=== PATIENT | male | born 1985 | race African-American/Black ===

== ENCOUNTER 2016-10-04 07:43 | Inpatient (IN) ==
--- NOTE | 2016-10-04 08:05 | Diag Imaging Result Doc PS360 ---
CT HEAD W/O CONTRAST - 10/04/2016 INDICATION: brain attack TECHNIQUE: A CT dose reduction protocol was used. COMPARISON: 09/19/2014 FINDINGS: The ventricles and sulci are normal in size and contour. No intracranial mass or hemorrhage. The skull is intact. The sinuses mastoids and middle ears are clear. IMPRESSION: Negative exam. Electronically signed by Huber Lemus 10/04/2016 8:03 AM
[2016-10-04 08:19] LABS: MANUAL DIFF NEEDED? NO
[2016-10-04 08:24] LABS: BASO% 0.5 % (0.0-0.8); EOS# 0.26 X1000 (0.0-0.7); EOS% 4.3 % (0.0-10.0); HEMATOCRIT 45.8 % (42.0-52.0); HEMOGLOBIN 15.8 g/dL (14.0-18.0); IMM GRAN# 0.04 X1000 (0.0-0.04); IMM GRAN% 0.7 % (0.0-0.5); LYMPH# 2.17 X1000 (1.2-3.4); LYMPH% 36.2 % (20.5-51.1); MCH 30.9 PG (27-31); MCHC 34.5 g/dL (33-37); MCV 89.5 FL (81-99); MONO# 0.83 X1000 (0.11-0.59); MONO% 13.8 % (1.7-9.3); MPV 9.8 FL (7.4-10.4); NEUT% 44.5 % (42.2-75.2); PLT 209 X1000 (130-400); RBC 5.12 XMIL (4.7-6.1)
[2016-10-04 08:32] LABS: INR 1.02; PROTIME 10.7 Seconds (9.2-11.7); PTT 25.9 Seconds (22.0-36.0)
--- NOTE | 2016-10-04 08:36 | PROVIDER DOCUMENTATION ---
HPI-Neurological Disorder - General Chief Complaint: Stroke-Like Symptoms Stated Complaint: BRAINATTACK/ST ELEVATION Time Seen by Provider: 10/04/16 07:52 Source: patient, EMS Allergies/Adverse Reactions: Patient Allergies Allergy/AdvReac Type Severity Reaction Status Date / Time Corticosteroids Allergy Unknown Unknown Verified 09/25/16 17:46 (Glucocorticoids) latex Allergy RASH Verified 09/25/16 17:46 hydrocodone bitartrate * AdvReac Intermediate Unknown Verified 09/25/16 17:46 [From Lortab] Home Medications: Home Medication List Medication Instructions Recorded Confirmed Last Taken Type ATORVAstatin [Lipitor] 20 mg PO DAILY #90 tablet 10/05/16 Unknown Rx Aspirin 81 mg PO DAILY chewtab 10/05/16 Unknown Rx Hydrochlorothiazide 25 mg PO DAILY #90 tablet 10/05/16 Unknown Rx Trazodone [Desyrel] 50 mg PO HS #30 tablet 10/05/16 Unknown Rx - History of Present Illness-Neuro Nature of Presenting Problem: Patient presents with right sided weakness present upon awaking this morning. Has hx of previous cva. Cesario substance abuse. Severity: reports: moderate Onset/Duration: reports: unsure Timing: reports: still present, constant Context: reports: impaired speech, paresthesia, facial droop Any recent trauma/injury?: reports: none Character of Deficits: reports: new weakness, impaired speech, impaired swallowing, decreased ability to stand, decreased ability to walk New weakness or altered sensation location:: reports: RUE, RLE, right facial Cognitive Baseline: alert, oriented x3 Associated Symptoms: reports: decreased ability to walk or stand, paresthesia, slurred speech, trouble walking Similar Symptoms Previously?: No (Previous CVA) Recently seen or treated by another doctor?: No Review of Systems - Adult - REVIEW OF SYSTEMS - ADULT ROS:: unobtainable per condition Constitutional: reports: no symptoms reported Eyes: reports: no symptoms reported Ears, Nose, Mouth & Throat: reports: no symptoms reported Cardiovascular: reports: no symptoms reported Respiratory: reports: no symptoms reported Gastrointestinal: reports: no symptoms reported Genitourinary: reports: no symptoms reported Musculoskeletal: reports: no symptoms reported Integumentary: reports: no symptoms reported Neurological: reports: paresthesia, slurred speech Psychiatric: reports: no symptoms reported Endocrine: reports: no symptoms reported Hematologic/Lymphatic: reports: no symptoms reported Allergic/Immunologic: reports: no symptoms reported Past History - Adult - PAST MEDICAL HISTORY-ADULT Review of Records: reports: Old Records Reviewed, Nursing Assessment Review Major Childhood Illnesses: reports: denies history Cardiovascular: reports: HTN, hyperlipidemia Respiratory: reports: denies history Gastrointestinal: reports: denies history Obstetrical/Gynecological: reports: denies history Genitourinary: reports: denies history Musculoskeletal: reports: other (peripheral neuropathy) Neurological: reports: CVA Psychiatric: reports: anxiety, depression Endocrine/Immune: reports: denies history Other Conditions: reports: denies history - PRIOR SURGERIES/PROCEDURES Surgical/Procedure History: reports: none - IMMUNIZATION STATUS Childhood Immunizations: See Nurse Assessment Flu Vaccine: See Nurse Assessment - FAMILY HISTORY Family History: diabetes, HTN - SOCIAL HISTORY Smoking: denies Substance Use: none/never Alcohol Use Frequency: never Physical Exam- Neurological - Physical Exam-Neuro Initial Vital Signs Reviewed: Yes General Appearance: mild distress Eye Exam: bilateral eye: normal inspection, PERRL, EOMI HENMT: normocephalic/atraumatic Head Injury: no evidence of injury Neck: non-tender, full range of motion Respiratory: chest non-tender Cardiovascular: normal peripheral pulses Abdominal Exam: normal bowel sounds Lymphatic: no adenopathy Peripheral Pulses: radial (R): 2+, radial (L): 2+, carotid (R): 2+, carotid (L) : 2+, femoral (R): 2+, femoral (L): 2+, dorsalis-pedis (R): 2+, dorsalis-pedis ( L): 2+ 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 Exam: normal hearing Coordination/Gait: ABN nose to finger (R) Motor/Sensory: no sensory deficit, weak motor strength RUE, weak motor strength RLE Neurologic: facial droop Integumentary: normal color Psych/Mental Status: normal mood/affect - Glascow Coma Scale Best Eye Response: (4) open spontaneously Best Verbal Response: (5) oriented Best Motor Response: (6) obeys commands Total Glascow Score: 15 Progress - PLAN OF CARE/RESULTS Progress/Plan/Lab Results: Orders Category Date Time Status Admit - [facility] Routine [id number] 10/04/16 11:03 Ordered Cardiac Monitoring DIRECTED Care 10/04/16 07:53 Completed Finger Stick Blood Sugar (ED) DIRECTED Care 10/04/16 07:53 Completed IV Insertion ORDERED Care 10/04/16 11:03 Completed Intake and Output-Strict ORDERED Care 10/04/16 11:03 Active Misc. NRSG Communication Order DIRECTED Care 10/04/16 07:53 Completed Neurological Check Q 4-HR ASSESS Care 10/04/16 11:03 Active Nursing- MD Consult Request ROUTINE Care 10/04/16 11:03 Completed Oxygen Therapy- ED Nursing DIRECTED Care 10/04/16 07:53 Completed Saline Loc NOW Care 10/04/16 07:53 Completed Vital Signs Order Q 4-HR ASSESS Care 10/04/16 11:03 Completed Z-Document. for Tele Applied ORDERED Care 10/04/16 11:03 Completed CHEST-PORTABLE [RAD] Stat Exams 10/04/16 07:[address] HEAD W/O CONTRAST [CT] Stat Exams 10/04/16 07:45 Completed BASIC METABOLIC PANEL [CHEM] Routine Lab 10/05/16 04:30 Completed CBC WITH ELECTRONIC DIFF [HEME] Stat Lab 10/04/16 08:03 Completed CBC WITH NO DIFF [HEME] Routine Lab 10/05/16 04:30 Completed CK PROFILE [SP CHEM] Q8H Lab 10/04/16 11:30 Completed CK PROFILE [SP CHEM] Q8H Lab 10/04/16 18:50 Completed CK PROFILE [SP CHEM] Q8H Lab 10/05/16 04:30 Completed COMPREHENSIVE METABOLIC PANEL [CHEM] Stat Lab 10/04/16 08:03 Completed D-DIMER [CHEM] Stat Lab 10/04/16 09:03 Completed FOLATE Routine Lab 10/05/16 04:30 Completed FREE T4 Routine Lab 10/05/16 04:30 Completed LIPID PROFILE W/CALC LDL [LIPIDS] Routine Lab 10/05/16 04:30 Completed MAGNESIUM [CHEM] Routine Lab 10/05/16 04:30 Completed PROTIME WITH INR [COAG] Stat Lab 10/04/16 08:03 Completed PTT [COAG] Stat Lab 10/04/16 08:03 Completed TROPONIN T Q8H Lab 10/04/16 11:30 Completed TROPONIN T Q8H Lab 10/04/16 18:50 Completed TROPONIN T Q8H Lab 10/05/16 04:30 Completed TROPONIN T Stat Lab 10/04/16 08:03 Completed TSH Routine Lab 10/05/16 04:30 Completed URINALYSIS W/POSS RFLX CULT-1 [URINALYSIS] Stat Lab 10/04/16 08:52 Completed URINE DRUG SCREEN MEDTOX Routine Lab 10/04/16 08:52 Completed VITAMIN B12 Routine Lab 10/05/16 04:30 Completed Aspirin Med 10/04/16 10:39 Discontinued 325 mg PO STAT STA Trazodone [Desyrel] Med 10/04/16 21:00 Discontinued 50 mg PO HS Telemetry [OM.EQ] Routine Oth 10/04/16 11:03 Active Carotid Ultrasound Routine Ther 10/04/16 11:03 Completed EKG [EKG] Stat Ther 10/04/16 07:53 Draft Echo Spec/Color Dop W/O Contra Routine Ther 10/04/16 11:03 Completed Venous U/S Right Leg Routine Ther 10/04/16 10:37 Completed Transfer/Admit Order [TRANSFER] Routine Transfer 10/04/16 09:52 Completed Result Diagrams: 10/05/16 04:30 10/05/16 04:30 - CHANGE OF SHIFT REPORT (ED Provider) Items Pending: XRAY Results (ct scan and chest xray WNL.), CT/MRI Results (CT WNL) Departure - Departure Date of Disposition Decision: 10/04/16 Time of Disposition Decision: 10:00 DIAGNOSIS: TIA (transient ischemic attack) Disposition: ADMITTED INPATIENT 09 Certified Medical Emergency: Emergent Condition: Stable - Critical Care Note This patient required my direct & personal management of CC.: No Attestation - Physician/ DEVIN Attestation Patient care was provided by Advanced Practice Provider:: No The physician spent face to face time with patient:: Yes Advanced Practice Provider documentation review:: Supervising physician onsite and consulted in the evaluation and care of this patient. The physician did have a face to face encounter with the patient. - NIH Stroke Scale NIH Type: Initial Evaluation Level of Consciousness: 0-Alert LOC Questions (ask month and age): 0-Answers Both Correctly LOC Commands (ask to open & close eyes;make a fist, let go): 0-Obeys Both Correctly Best Gaze (horizontal eye movement): 0-Normal Visual (use finger movement, counting or visual threat): 0-No Visual Loss Facial Palsy (show teeth or raise eyebrows & close eyes tght: 0-Symmetrical Movement
[2016-10-04 08:46] LABS: AGAP 14; ALBUMIN 4.6 g/dL (3.5-5.0); ALKALINE PHOSPHATASE 71 U/L (32-122); BUN 13 mg/dL (8-22); CALCIUM 9.1 mg/dL (8.8-10.2); CHLORIDE 99 mmol/L (98-107); COSMO 277; GOT 18 U/L (10-34); GPT 38 U/L (10-44); POTASSIUM 4.3 mmol/L (3.5-5.1); SODIUM 138 mmol/L (136-145); TCO2 25 mmol/L (25-35); TOTAL BILIRUBIN 0.41 mg/dL (0.20-1.00); TOTAL PROTEIN 7.7 g/dL (6.3-8.3)
--- NOTE | 2016-10-04 08:46 | Diag Imaging Result Doc PS360 ---
CHEST-PORTABLE - 10/04/2016 INDICATION: stroke like symptoms TECHNIQUE: COMPARISON: 09/19/2014 FINDINGS: The lungs are normally expanded and clear. Heart size and mediastinal contours are normal. No pneumothorax or pleural effusion. IMPRESSION: Negative exam. Electronically signed by Huber Lemus 10/04/2016 8:44 AM
[2016-10-04 09:06] LABS: URINE CULTURE NEEDED? NO; URINE MICRO REVIEW NEEDED? NO; URINE SOURCE CLEAN CATCH
[2016-10-04 09:09] LABS: BILIRUBIN URINE NEGATIVE (NEGATIVE); BLOOD URINE NEGATIVE (NEGATIVE); COLOR YELLOW; GLUCOSE URINE NEGATIVE (NEGATIVE); LEUKOCYTES URINE NEGATIVE (NEGATIVE); NITRITE URINE NEGATIVE (NEGATIVE); PROTEIN URINE NEGATIVE (NEGATIVE); SP GRAVITY URINE 1.012; TURBIDITY URINE CLEAR (CLEAR); UROBILINOGEN URINE NORMAL (NORMAL)
[2016-10-04 09:10] LABS: UR EPITHELIAL CELLS <10 /HPF (<10); URINE BACTERIA NEGATIVE /HPF; URINE RBC <10 /HPF (<10); URINE WBC <10 /HPF (<10)
[2016-10-04 09:21] LABS: UR AMPHETAMINES MT NONE DETECTED (NONE DETECT); UR BARBITUATES MT NONE DETECTED (NONE DETECT); UR BENZODIAZ MT NONE DETECTED (NONE DETECT); UR CANNABIS MEDTOX NONE DETECTED (NONE DETECT); UR COCAINE MT NONE DETECTED (NONE DETECT); UR METHADONE MEDTOX NONE DETECTED (NONE DETECT); UR OPIATES MT NONE DETECTED (NONE DETECT); UR OXYCODONE MEDTOX NONE DETECTED (NONE DETECT); UR PCP MEDTOX NONE DETECTED (NONE DETECT)
[2016-10-04] MEDS ORDERED: ASPIRIN PO STA (10:39)
[2016-10-04] MEDS: NS 1,000 ML IV SCH ×2 (11:42→20:04)
--- NOTE | 2016-10-04 14:19 | HISTORY AND PHYSICAL ---
PRIMARY CARE PROVIDER: JAZZMINE Polo. CHIEF COMPLAINT: Right-sided weakness. HISTORY OF PRESENT ILLNESS: Mr. Kamara is a 31-year-old gentleman with a history of peripheral neuropathy, hypertension, and questionable seizure disorder, who presents to the ER with acute onset of right-sided weakness that began this morning. He reports that he woke up this morning with some right arm and leg weakness. He went to the bathroom and noticed that the right side of his face was drooping and he came to the ER for evaluation for concern of stroke. Yesterday he was in his normal state of health. This morning, he states that his right arm and leg are somewhat numb and that he is having some numbness and tingling in the right side of face with right-sided drooping. He also reports brief midsternal chest pain that was sharp in nature earlier this morning. This was associated with some mild shortness of breath and mild nausea. He has not had any recent fevers or chills. No seizure-like activity. No loss of vision or syncope. He does report some blurry vision. He also reports some pain and swelling in the right lower extremity. Mr. Kamara was here in February of last year for essentially the same thing, but at that time he had seizure-like activity as well. He had a brain MRI which was negative and was seen by neurology, who did not have any urgent recommendations. He reports that he does not take any seizure medicine because he was told not to last year. When he got to the ER today he had labs and diagnostics done. His labs are unremarkable and his imaging studies do not show anything acute. On physical exam, he does have some right-sided weakness of both upper and lower extremities but he is oriented. He is now going to be admitted for further treatment and evaluation. PAST MEDICAL HISTORY: 1. Hypertension. 2. Hyperlipidemia. 3. Insomnia. 4. Reported history of a small stroke. 5. Questionable seizures. PAST SURGICAL HISTORY: None. SOCIAL HISTORY: Patient denies tobacco, alcohol, or drug use. He has multiple family members at the bedside. FAMILY HISTORY: Significant for heart disease and CVA, as well as diabetes. ALLERGIES: Glucocorticoids, latex, and Lortab. HOME MEDICATIONS: Lisinopril 20 mg daily and trazodone 50 mg at bedtime. REVIEW OF SYSTEMS: Fourteen-point review of systems obtained and found to be negative with the exception of the HPI. PHYSICAL EXAMINATION: VITAL SIGNS: Blood pressure is 129/79, heart rate 79, respiratory rate 18, O2 saturation 99% on room air, temperature is 98.7 degrees. GENERAL: This is an overweight, male, lying in hospital bed. No acute distress. NEUROLOGIC: The patient is awake and alert. He follows commands with right upper and lower extremity weakness. He does perhaps have some mild right facial droop. Speech is clear. HEENT: Head is atraumatic, normocephalic. Pupils are equal, round, reactive to light. Oral mucosa is moist. Trachea is midline. There is no JVD. CHEST: Clear to auscultation bilaterally. CV: Regular rate and rhythm. S1, S2 is noted. GI: Soft, nondistended. He reports some mild epigastric tenderness to palpation. EXTREMITIES: No edema, clubbing, or cyanosis. Pulses palpable bilaterally. DIAGNOSTIC DATA: Chemistry, hematology, urine, and toxicology are all unremarkable. His head CT does not show anything acute. Chest x-ray is negative. Currently awaiting an EKG. ASSESSMENT AND PLAN: 1. Right-sided weakness: It is unlikely the patient is having a CVA; however, we are going to admit him to the floor with telemetry. He will get a full workup including an MRI of the head, carotid ultrasound, and echocardiogram. We will add aspirin. Check lipid panels. We will continue neuro checks and allow for permissive hypertension. 2. Chest pain: Atypical, bordering on noncardiac. Echo has been ordered. We have ordered stat aspirin. We will keep him on telemetry and monitor. 3. Hypertension: Allowing for permissive hypertension at this time. We will treat according to stroke guidelines. 4. Peripheral neuropathy: Unclear of the etiology. We do not have EMG studies. The patient is not diabetic. We will try and get neurology to see him. 5. Deep vein thrombosis prophylaxis with Lovenox. Further recommendations to follow. I personally performed a face to face evaluation on this patient, also I review laboratory work and images, based on my physical exam I think this patient has migraines, has an strong family history of cardiac disease at young age, I agree with the assestment and treatment, Giorgio Villaseñor MD. Dictated by JAZZMINE Washington for Giorgio Hebert MD cc: JAZZMINE Washington MD MTDD
--- NOTE | 2016-10-04 14:19 | ECHO REPORT ---
ORDER DATE: 10/04/2016 ECHOCARDIOGRAPHIC MEASUREMENTS: 1. Interventricular septum 0.8, left ventricular posterior wall 1.0, diastolic diameter 4.8, left atrium 3.3, aorta 3.1. Normal left ventricular cavity size. Estimated ejection fraction of 60-65%. 2. Mitral valve was normal. Tricuspid valve was normal. 3. Aortic valve leaflets are trileaflet. Pulmonic valve was normal. 4. Peak velocity across the aortic valve less than 2 m/sec. There is no aortic stenosis or regurgitation. There is trace mitral regurgitation. Mild tricuspid regurgitation. Peak velocity across the tricuspid valve was 2 m/sec. 5. There is no pericardial effusion or obvious intracardiac mass or thrombus seen. cc: MD Contreras Rojas CRNP
[2016-10-04] MEDS ORDERED: NORCO-5 PO ONE (20:56)
[2016-10-04] MEDS ORDERED: DESYREL PO SCH (21:00)
[2016-10-05 04:56] LABS: HEMATOCRIT 39.7 % (42.0-52.0); HEMOGLOBIN 13.8 g/dL (14.0-18.0); MCH 31.8 PG (27-31); MCHC 34.8 g/dL (33-37); MCV 91.5 FL (81-99); MPV 9.5 FL (7.4-10.4); RBC 4.34 XMIL (4.7-6.1)
[2016-10-05 05:31] LABS: AGAP 14; BUN 11 mg/dL (8-22); CALCIUM 8.7 mg/dL (8.8-10.2); CHLORIDE 102 mmol/L (98-107); COSMO 278; HDL 43 mg/dL (35-55); LDL 164 mg/dL; MAGNESIUM 1.9 mg/dL (1.5-2.7); POTASSIUM 4.1 mmol/L (3.5-5.1); SODIUM 139 mmol/L (136-145); TCO2 23 mmol/L (25-35); TRIGLYCERIDES 198 mg/dL (39-160); VLDL 40 mg/dL
[2016-10-05 05:47] LABS: FREE T4 1.13 ng/dL (0.93-1.70)
--- NOTE | 2016-10-05 05:49 | EKG Report ---
Test Performed on : 10/04/2016 07:35:01 AM Test Reason : Stroke like symptoms Blood Pressure : / mmHG Vent. Rate : 094 BPM Atrial Rate : 094 BPM P-R Int : 144 ms QRS Dur : 098 ms QT Int : 384 ms P-R-T Axes : 048 038 000 degrees QTc Int : 480 ms Normal sinus rhythm. Possible Left atrial enlargement Prolonged QT Abnormal ECG No previous ECGs available Unconfirmed Result
[2016-10-05] MEDS ORDERED: PRILOSEC PO SCH (07:00)
[2016-10-05] MEDS: NS 1,000 ML IV SCH ×3 (07:44→13:03)
[2016-10-05] MEDS ORDERED: LOVENOX SUBQ SCH (09:00)
[2016-10-05] MEDS ORDERED: LIPITOR PO SCH (09:00)
[2016-10-05] MEDS ORDERED: ASPIRIN PO SCH ×2 (09:00→14:03)
[2016-10-05 11:22] VITALS: BP 140/96
--- NOTE | 2016-10-05 15:13 | Diag Imaging Result Doc PS360 ---
EXAM: MRI BRAIN W W/O CONTRAST HISTORY: R/O stroke TECHNIQUE: MRI of the brain with and without gadolinium; T1 sagittal and axial, T2 and flair axial, DWI axial and post gadolinium-enhanced FSPGR T1 axial with coronal reformation, gradient echo coronal. COMMENT: There is no evidence of mass effect, bleed, abnormal extra-axial fluid collection, or hydrocephalus. There is no evidence of restricted diffusion. There is no evidence of abnormal gadolinium enhancement. IMPRESSION: Normal MRI of the brain. Electronically signed by Rafa Sen 10/05/2016 3:11 PM
--- NOTE | 2016-10-05 16:59 | CONSULTATION ---
DATE OF CONSULTATION: 10/05/2016 REASON FOR CONSULTATION: The patient is seen in consultation at the request of Dr. Casanova for evaluation of possible stroke. HISTORY OF PRESENT ILLNESS: A 31-year-old, right-handed, male , with history of hypertension and depression, who was admitted for possible stroke symptoms. He reports he woke up yesterday morning, and walked to the bathroom and noticed that his right lower face was drooping. He smiled and felt like it was still droopy. He then noticed that his right arm , which was being held tonically at his side with a clinched fist, was difficult to move. It was stiff. He tried to use his left hand to open up his right fist, but was unable to do this because the hand was stiff. He also felt like there was some numbness about the middle of the right arm and also the full right leg. When being tested in the emergency room for strength, he felt like it was more difficult to lift his right leg than his left leg. All the symptoms resolved in approximately 30 minutes. He did not have any lightheadedness or loss of consciousness. No headache. No further symptoms, neurologically. There was report of some brief sharp chest pain. He has never had this before. Head CT did not show any acute findings. His blood pressure was just 129/79, with a heart rate of 79. He reports that about 2 weeks after being at home with his father, when his father had, what sounds to be, a heart attack from which he , the patient had some symptoms for which he was seen in [place], and says that he was diagnosed with a possible small stroke. At that time, his symptoms were redness only on the left side of his body, per his report. He has never had those symptoms again. He also reports history of neuropathy "NOS", that was diagnosed by Dr. Peguero several years ago for his complaints of intermittent burning and tingling all over his body. Upon further discussion with the patient, he tells me he does think that his symptoms yesterday may have actually been due to stress. In particular, he and his got into an argument the night prior, and he says his children were misbehaving quite a bit. Also, he ran across some pictures of his father the day prior, and this brought back sad memories. He says it was all "overwhelming and too much" for him. He says he is supposed to be taking an antidepressant medication, but he is not taking it because it gave him headaches. He has not followed up with his primary care doctor regarding that. He also says that heart attacks and strokes are prominent in his family and that that is how "we ." He worries because he "is next in line" in terms of his age for this to happen to him. Lastly, he also says that, while he does not usually do this, he took his nighttime trazodone with Benadryl the night prior. PAST MEDICAL HISTORY: 1. Hypertension. 2. Hyperlipidemia. 3. Insomnia. 4. One event, in approximately 2006, within 2 weeks of the of his father, of reported redness on the left side of his body. This was diagnosed as a possible small stroke in [place], per patient 5. Reports "neuropathy NOS", as detailed above. 6. Questionable seizure versus other x2, one in 2014 and the next February 2015. The patient was unresponsive 45 minutes for one, and 10 minutes for the other. SOCIAL HISTORY: No tobacco, alcohol, or illicit drug use. He lives with his and 2 young children. He is not employed and does not attend school. He says that he is trying to get disability because he feels that he cannot work. FAMILY HISTORY: Notable for prominent heart disease and possible strokes. Hypertension, diabetes. His father from, what sounds to be, a large heart attack at age 42. His grandfather of a heart attack at age 50. ALLERGIES: Glucocorticoids, latex and Lortab. HOME MEDICATIONS: Lisinopril 20 mg daily, trazodone 50 mg at bedtime. He supposed to be on some type of antidepressant that he has not taken and cannot recall the name. REVIEW OF SYSTEMS: Balance of 10 was conducted and was otherwise negative, except that detailed in the HPI. PHYSICAL EXAMINATION: Vital Signs: Afebrile, blood pressure 130/72, pulse 67, respirations 18. General: A pleasant, young male sitting up on the side of the bed, in no acute distress. Cooperative. Neck: Supple. Trachea midline. Cardiovascular: Intact pulses. No edema. Lungs: No increased work of breathing. Normal chest rise and expansion. No audible wheezes. Abdomen: Obese. No guarding. Extremities: Warm, well-perfused. Intact pulses. No significant edema. Skin: Warm, dry, and intact. No lesions. Neurologic: Mental status: He is awake, alert, oriented. Speech fluent. Attention and concentration intact. Appropriately conversant. Spontaneous. Cranial nerves 2 through 12 were tested and intact. No right facial droop noted on exam. Motor exam: No drift. Strength 5/5 throughout. Symmetric. Reflexes are 1 to 2+ throughout, symmetric, including at the ankles. No clonus. Toes are downgoing. Coordination: Intact finger taps, [id number], [id number]. Absent Romberg. Gait: Normal casual. Sensory exam: He reports diminished to vibration, proprioception and to temperature on the right leg and right arm. Otherwise, there is no length dependent loss and the left side is normal. He reports this has been ongoing since, at least, 2 months ago that he powell noticed. DIAGNOSTICS: Noncontrasted head CT was personally reviewed. Unremarkable. MRI from 2016 was personally reviewed. It is normal. Echocardiogram was done this admission. No intracardiac mass or thrombus seen. No pericardial effusion. Otherwise, per report. Preliminary carotid Dopplers were 0% to 39% bilaterally. Preliminary right lower extremity Doppler was negative for clot. LABORATORIES: Reviewed in the chart. INR 1.02. BUN 11, creatinine 1.1. LFTs were not elevated. Triglycerides 198, cholesterol 247, LDL 164, HDL 43. Toxicology negative. Urinalysis negative. ASSESSMENT AND PLAN: A 31-year-old, right-handed, male, with history of hypertension, hyperlipidemia and depression, presenting with transient right- sided symptoms as detailed above. His neurological exam is normal. I discussed with the patient that there are some features that could be consistent with a transient ischemic attack, but certainly other features that are inconsistent with this diagnosis. Agree with MRI of the brain. His subjective sensory symptoms noted on the exam would only be consistent with something intracranially, and we should see this on brain imaging if so. Agree with low-dose aspirin daily. Risk factor management. This was all discussed with the patient. Should he have repeat symptoms, he should be evaluated again. cc: Karol Velasquez MD [facility] NETWORKAnika
[2016-10-06] MEDS ORDERED: HYDROCHLOROTHIAZIDE PO SCH (09:00)
[2016-10-06] MEDS ORDERED: ASPIRIN PO SCH (09:00)
--- NOTE | 2016-10-06 10:15 | DISCHARGE SUMMARY ---
ADMISSION DATE: 10/04/2016 DISCHARGE DATE: 10/05/2016 CONSULTATIONS: None. PERTINENT PROCEDURES: 1. Head CT negative. 2. Echocardiogram showed an EF of 60% to 65%. 3. Not show anything acute. DISCHARGE DIAGNOSES: 1. Right-sided weakness. Cerebrovascular accident ruled out. Head CT and MRI were negative. He will be discharged on aspirin, Lipitor and hydrochlorothiazide. 2. Chest pain is atypical. Several sets of cardiac enzymes were negative. 3. Hypertension. Patient initiated on hydrochlorothiazide. 4. Peripheral neuropathy of unclear etiology. The patient is not a diabetic. HOSPITAL COURSE: Mr. Kamara is a 31-year-old, male, with a history of peripheral neuropathy, hypertension and questionable seizure disorder, presented to the ED with acute onset of right-sided weakness that began on the morning of admission. He reports he woke up with some right arm and leg weakness. He went to the bathroom and noticed that the right side of his face was droopy. He came to the ED for evaluation, concern for stroke. The day before his admission he was in his normal state of health. He also reported that his right arm and leg were somewhat numb when he was having numbness and tingling on the right side of his face with right- sided drooping. Also reported brief midsternal chest pain that was sharp in nature, associated with some mild shortness of breath and mild nausea. No recent fever or chills. No seizure-like activity. No loss of vision or syncope. He did report some blurry vision, some pain and swelling in the right lower extremity. He was seen here in February of last year for essentially the same thing, but at that time he had seizure-like activity as well. He had a brain MRI which was negative. He was seen by neurology, but did not have any urgent recommendations. He reports that he does not take any seizure medication because he was told not to. He had labs and diagnostics done in the ED. They were unremarkable. On physical exam, he had some right- sided weakness of both upper and lower extremities, but he was oriented. He was admitted for further workup. He had an echocardiogram, an MRI of the brain, a lipid profile, serial troponin's; everything has been negative. His triglycerides were high, his cholesterol was high. He was continued on neuro checks and allowed for permissive hypertension. He was initiated on aspirin, hydrochlorothiazide, as well as Lipitor. Dr. Casanova has assessed the patient and feels he is appropriate for discharge. VITAL SIGNS: Temperature is 98.1 degrees, heart rate 77, respirations 16, blood pressure is 140/96, O2 is 100% on room air. PLAN: Patient will need to follow up with his primary care physician. With his strong family history of heart disease, he will need to continue to follow along with the marine engineering consultant, take all of his medications as prescribed, follow a healthy heart diet, as well as recommended weight loss. He can return to the ED for any worsening of symptoms. I personally performed a face to face evaluation on this patient, also I review laboratory work and images, he is ready for discharge, neurology evaluated the patient, I agree with the assessment and plan, Giorgio Villaseñor MD. Dictated by JAZZMINE Hunt for Giorgio Hebert MD cc: Giorgio Hebert MD MTDD
--- NOTE | 2016-10-07 07:20 | Extremity Venous Study ---
PROCEDURE NAME: Venous U/S Right Leg - 10/04/2016 STUDY: Right lower extremity venous study. REQUESTING PHYSICIAN: Giorgio Hebert MD OILER AND GREASER: [place]. INDICATIONS: Pain and edema in the right leg. PROCEDURE: Right lower extremity venous duplex color-flow imaging. EQUIPMENT: [employer] Corpid E9 Ultrasound System with a 9 LD transducer FINDINGS: Imaging of the right lower extremity with comparison of the left common femoral vein were obtained in both sagittal and transverse planes. Doppler was used to evaluate veins for spontaneity, phasicity, respiratory excursion, and digital augmentation. RESULTS: Normal venous compression, normal venous flow. No obvious superficial or deep venous thrombosis in the right lower extremity. INTERPRETATION: Essentially normal right lower extremity venous study. cc: MD Contreras Christian CRNP
--- NOTE | 2016-10-07 07:45 | Carotid Study ---
DATE: 10/04/2016 PROCEDURE: Bilateral duplex and color flow imaging of the carotid arteries was performed using the eo[employer] Vivid E9 ultrasound system with a 9L-D transducer. REFERRING PHYSICIAN: Giorgio Hebert MD. INTERPRETING PHYSICIAN: Patel Rock MD. TECH: [place]. INDICATIONS: Right-sided weakness with right-sided facial droop. OBSERVED DATA RIGHT LEFT Brachial Blood Pressure Carotid Pulse Bruits: Carotid/Sub DIAGRAM OF ULTRASOUND IMAGING R L RIGHT INT EXT INT EXT LEFT Charli (cm/s) Charli (cm/s) Subclavian 112/0 Subclavian 132/0 CCA Proximal 98/16 CCA Proximal 126/16 CCA Distal 101/22 CCA Distal 119/30 Bulb 85/21 Bulb 92/22 ICA Proximal 71/24 ICA Proximal 64/24 ICA Mid 101/47 ICA Mid 75/33 ICA Distal 85/41 ICA Distal 86/36 ECA 83/16 ECA 79/14 Vertebral 41/8 A Vertebral 52/23 A ICA/CCA Ratio 1.00 ICA/CCA Ratio 0.69 % Stenosis 0-39 % Stenosis 0-39 FINDINGS: There appears to be by strict velocity criteria no hemodynamically significant flow- limiting stenosis noted to bilateral carotid arteries. Both vertebral arteries are antegrade flow. INTERPRETATION: By strict velocity criteria, no hemodynamically significant flow-limiting stenosis noted to bilateral carotid arteries. cc: MD Contreras Christian CRNP
== END 2016-10-05 14:59 | disposition home or self-care (01) ==
LOC: ED 07:43 → 3N 10:43
PROVIDERS: ATTEND Internal Medicine

== ENCOUNTER 2019-03-04 14:19 | Inpatient (IN) ==
[2019-03-04 15:47] LABS: BASO# 0.07 X1000 (0.0-0.2); BASO% 1.2 % (0.0-0.8); EOS# 0.37 X1000 (0.0-0.7); EOS% 6.2 % (0.0-10.0); HEMATOCRIT 40.9 % (42.0-52.0); HEMOGLOBIN 14.3 g/dL (14.0-18.0); LYMPH# 2.87 X1000 (1.2-3.4); LYMPH% 48.2 % (20.5-51.1); MCH 30.2 PG (27-31); MCV 86.3 FL (81-99); MONO# 0.51 X1000 (0.11-0.59); MONO% 8.6 % (1.7-9.3); MPV 10.3 FL (7.4-10.4); NEUT# 2.14 X1000 (1.4-6.5); NEUT% 35.8 % (42.2-75.2); PLT 225 X1000 (130-400); RBC 4.74 XMIL (4.7-6.1); RDW 12.6 % (11.5-14.5); WBC 5.96 X1000 (4.8-10.8)
[2019-03-04 16:23] LABS: AGAP 13; ALB/GLOB RATIO 1.4; ALBUMIN 4.4 g/dL (3.5-5.0); ALKALINE PHOSPHATASE 63 U/L (32-122); BUN 10 mg/dL (8-22); CALCIUM 9.4 mg/dL (8.8-10.2); CHLORIDE 103 mmol/L (98-107); COSMO 279; CREATININE 1.1 mg/dL (0.7-1.2); ESTIMATED GFR > 60; GLUCOSE 102 mg/dL (70-104); GOT 22 U/L (10-34); GPT 35 U/L (10-44); POTASSIUM 4.2 mmol/L (3.5-5.1); SODIUM 140 mmol/L (136-145); TCO2 24 mmol/L (25-35); TOTAL BILIRUBIN 0.22 mg/dL (0.20-1.00); TOTAL PROTEIN 7.6 g/dL (6.3-8.3)
[2019-03-04] MEDS ORDERED: ROCEPHIN 1 GM in NS 50 ML IV ONE (16:35)
[2019-03-04] MEDS ORDERED: NS 1,000 ML IV ONE (16:35)
[2019-03-04] MEDS ORDERED: PROTONIX IV ONE (16:35)
[2019-03-04] MEDS ORDERED: SODIUM CHLORIDE 0.9% INJ ONE (16:35)
--- NOTE | 2019-03-04 17:11 | PROVIDER DOCUMENTATION ---
This chart was entered by Komal Guevara Scribe, acting as scribe for Stevie Suresh MD. HPI-Abdominal Pain/GI Problem - General Chief Complaint: GI Bleed Stated Complaint: PASSING BLOOD Time Seen by Provider: 03/04/19 15:44 Source: patient Allergies/Adverse Reactions: Patient Allergies Allergy/AdvReac Type Severity Reaction Status Date / Time Corticosteroids Allergy Unknown Unknown Verified 02/08/19 06:55 (Glucocorticoids) latex Allergy RASH Verified 02/08/19 06:55 hydrocodone bitartrate * AdvReac Intermediate Unknown Verified 12/09/18 08:02 [From Lortab] Home Medications: Home Medication List Medication Instructions Recorded Confirmed Last Taken Type Lisinopril 10 mg PO DAILY 30 Days #30 tab 02/08/19 03/04/19 Unknown Rx Metformin [Glucophage] 500 mg PO WBREAKFAST #30 tab 02/08/19 03/04/19 Unknown Rx - History of Present Illness-ABD Nature of Presenting Problems: pt is a 33 yobm c/o rectal bleed starting . pt believed it was a hemorrhoid but has become worse every time having BM has bright red blood. pt also c/o nausea, periumbilical cramping. pt last had BM 1400. hx htn, takes 10 lisinopril, and dm, takes 500 metformin. no pcp. no ibuprofen or goody powder. nonsmoker, no alcohol or drug use. Abdominal Pain Onset Location: reports: periumbilical Pain Radiation: reports: no radiation Quality of Pain: reports: cramping Severity in ED: reports: mild Onset/Duration: reports: 3 days ago Timing: reports: still present Activities at Onset: reports: none Modifying Factors: improves with: nothing Last BM: this afternoon (1400) Dark Stools Present?: reports: bright red blood Rectal Bleeding: reports: bleeding without stool Review of Systems - Adult - REVIEW OF SYSTEMS - ADULT Constitutional: reports: no symptoms reported. denies: fever, fatique, night sweats Eyes: reports: no symptoms reported Ears, Nose, Mouth & Throat: reports: no symptoms reported Cardiovascular: reports: no symptoms reported Respiratory: reports: no symptoms reported Gastrointestinal: reports: see HPI, abdominal pain, nausea, rectal bleeding. denies: diarrhea, difficulty swallowing, vomiting Genitourinary: reports: no symptoms reported Musculoskeletal: reports: no symptoms reported Integumentary: reports: no symptoms reported Neurological: reports: no symptoms reported Psychiatric: reports: no symptoms reported Endocrine: reports: no symptoms reported Hematologic/Lymphatic: reports: no symptoms reported Allergic/Immunologic: reports: no symptoms reported All Other Systems: Reviewed and Negative Past History - Adult - PAST MEDICAL HISTORY-ADULT Review of Records: reports: Nursing Assessment Review, Medications Reviewed, Social history reviewed & non-contributory. Major Childhood Illnesses: reports: denies history Cardiovascular: reports: HTN, hyperlipidemia Respiratory: reports: denies history Gastrointestinal: reports: GERD Obstetrical/Gynecological: reports: denies history Genitourinary: reports: kidney disease Musculoskeletal: reports: other (peripheral neuropathy) Neurological: reports: CVA, Seizures/Epilepsy Psychiatric: reports: anxiety, depression Endocrine/Immune: reports: Diabetes Other Conditions: reports: denies history - PRIOR SURGERIES/PROCEDURES Surgical/Procedure History: reports: none - IMMUNIZATION STATUS Childhood Immunizations: See Nurse Assessment Flu Vaccine: See Nurse Assessment - FAMILY HISTORY Family History: diabetes, HTN - SOCIAL HISTORY Smoking: non-smoker Substance Use: none/never Physical Exam-General - PHYSICAL EXAM-ADULT Initial Vital Signs Reviewed: Yes - CONSTITUTIONAL General Appearance: alert, no apparent distress, obese. negative: lethargic, slow to respond, obtunded - EYES Eyes: PERRL/EOMI - HEAD, EARS, NOSE, MOUTH & THROAT HENMT: normocephalic/atraumatic, moist mucous membranes - NECK Neck: non-tender, full range of motion, supple, normal inspection - RESPIRATORY Respiratory: chest non-tender, lungs clear, normal breath sounds - CARDIOVASCULAR Cardiovascular: normal peripheral pulses, regular rate, rhythm - GASTROINTESTINAL (ABDOMEN) Abdominal Exam: normal bowel sounds, soft, no organomegaly, no pulsatile mass, tenderness (mild to palp periumbilical). negative: non tender, guarding, rigid, rebound - MUSCULOSKELETAL Back Exam: normal inspection Extremity: normal range of motion, non-tender, normal inspection, normal capillary refill - SKIN Integumentary: normal color, normal turgor, warm/dry - NEUROLOGIC Neurologic: grossly normal, no motor/sensory deficits - PSYCHIATRIC Psych/Mental Status: normal mood/affect, normal thought content, normal thought process, oriented x 3 Progress - PLAN OF CARE/RESULTS Progress/Plan/Lab Results: Vital Signs - 8 hr 03/04/19 14:33 03/04/19 15:58 Temperature 98.4 F 98.4 F Pulse Rate 91 H 88 Respiratory Rate 19 19 Blood Pressure 159/94 164/98 O2 Sat by Pulse Oximetry 98 100 03/04/19 15:54 Stool Occult Blood (DANISH) - Final Stool Laboratory Results - last 24 hr 03/04/19 03/04/19 14:40 14:40 WBC 5.96 RBC 4.74 Hgb 14.3 Hct 40.9 L MCV 86.3 MCH 30.2 MCHC 35.0 RDW Std Deviation 12.6 Plt Count 225 MPV 10.3 Immature Gran % (Auto) 0.0 Neut % (Auto) 35.8 L Lymph % (Auto) 48.2 Union % (Auto) 8.6 Eos % (Auto) 6.2 Baso % (Auto) 1.2 H Immature Gran # (Auto) 0.00 Neut # (Auto) 2.14 Lymph # (Auto) 2.87 Union # (Auto) 0.51 Eos # (Auto) 0.37 Baso # (Auto) 0.07 Sodium 140 Potassium 4.2 Chloride 103 Carbon Dioxide 24 L Anion Gap 13 BUN 10 Creatinine 1.1 Estimated GFR/1.73 m2 > 60 BUN/Creatinine Ratio 9 Glucose 102 Calculated Osmolality 279 Calcium 9.4 Total Bilirubin 0.22 AST 22 ALT 35 Alkaline Phosphatase 63 Total Protein 7.6 Albumin 4.4 Globulin 3.2 Albumin/Globulin Ratio 1.4 Orders Category Date Time Status CBC WITH DIFF [HEME] Stat Lab 03/04/19 14:40 Completed COMPREHENSIVE METABOLIC PANEL [CHEM] Stat Lab 03/04/19 14:40 Completed OCCULT BLOOD SCREENING [STOOL] Stat Lab 03/04/19 15:54 Completed TYPE & SCREEN [BBK] Stat Lab 03/04/19 14:40 Results Abd Pain/Abn Bleeding Stat Oth 03/04/19 14:36 Ordered Result Diagrams: 03/04/19 14:40 03/04/19 14:40 - REASSESSMENT Reassessment #1 Time Reassessed: 16:46 Status: worsening (pt is tachycardic, 115) - CONSULTS/PCP/HOSPITALIST Notification #1 *Consult/PCP/Hospitalist*: Dr. Escobedo Time Discussed: 16:45 Consult Disposition: Admit #2 Consult: HOSPITALIST Time Discussed: 17:10 Consult Disposition: Admit Departure - Departure Date of Disposition Decision: 03/04/19 Time of Disposition Decision: 17:10 DIAGNOSIS: Lower GI bleeding Disposition: ADMITTED INPATIENT 09 Certified Medical Emergency: Emergent Condition: Critical Referrals and Follow-Ups: None,PCP [Primary Care Provider] - - Critical Care Note This patient required my direct & personal management of CC.: No Attestation - Physician/ DEVIN Attestation Patient care was provided by Advanced Practice Provider:: No The physician spent face to face time with patient:: Yes Advanced Practice Provider documentation review:: Supervising physician onsite and consulted in the evaluation and care of this patient. The physician did have a face to face encounter with the patient. This chart was documented by the indicated scribe, (Komal Guevara Scribe) and accurately reflects the services I performed and decisions made by me, Stevie Suresh MD, as attested by the provider's signature.
[2019-03-04] MEDS ORDERED: TYLENOL PO PRN (17:17)
[2019-03-04] MEDS ORDERED: ZOFRAN IV PRN (17:17)
[2019-03-04 17:47] LABS: INR 0.96; PROTIME 12.9 Seconds (11.0-16.0)
[2019-03-04 18:00] LABS: PTT < 20.0 Seconds (22.3-41.8)
[2019-03-04 19:37] LABS: HEMATOCRIT 39.3 % (42.0-52.0); HEMOGLOBIN 13.5 g/dL (14.0-18.0)
[2019-03-04] MEDS ORDERED: HUMALOG SUBQ SCH (21:00)
--- NOTE | 2019-03-04 21:06 | HISTORY AND PHYSICAL ---
CHIEF COMPLAINT: Rectal bleeding. HPI: This is a 33-year-old gentleman who presented to the emergency room complaining of passing blood clots when he has had bowel movements over the last 24 hours. 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 He does have some intermittent abdominal pain around the umbilicus. It is a crampy pain that does increase somewhat just before he needs to have a bowel movement. It does relieve some after having bowel movement. He denies any prior history. He is not taking consistent [id number] NSAIDs, aspirin, etc. PAST MEDICAL HISTORY: 1. Hypertension. 2. Peripheral neuropathy. 3. Reported congestive heart failure with preserved ejection fraction which was 60 to 65 percent in September 2016. 4. Diabetes mellitus type 2. 5. Hyperlipidemia. 6. History of renal disease with a left kidney with decreased function. 7. TIA. 8. Anxiety . 9. Depression. PAST SURGICAL HISTORY: Denies. SOCIAL HISTORY: He denies alcohol, tobacco, or illicit drug use. He lives with his and 2 children. ALLERGIES: Latex which causes a rash and [place] and glucocorticoids with unknown reaction. HOME MEDICATIONS: Lisinopril 10 mg p.o. daily, metformin 500 mg p.o. daily. REVIEW OF SYSTEMS: Discussed with patient with pertinent positives stated in the HPI. He denied any syncope or dizziness, any chest pain or palpitation, any fever, chills, recent weight loss or weight gain, any nausea, vomiting, constipation, black or bloody vomitus, hematuria, dysuria, frequency, urgency. PHYSICAL EXAM: This is a 33-year-old gentleman who is standing at the bedside in the emergency room in no distress. VITAL SIGNS: Blood pressure is 164/90 with a heart rate of 88, respirations are 18, temperature is 98.4 degrees oral with room air saturations 100%. HEENT: Head is normocephalic, atraumatic. Mucous membranes are moist. Pupils are equal, round, react to light. EOMs are intact. Sclerae are anicteric. NECK: Supple with trachea midline. CARDIOVASCULAR: Regular rate and rhythm. S1 and S2 appreciated. Bilateral calves are nontender with peripheral pulses palpable x4 extremities. PULMONARY: Breath sounds are clear with no increased work of breathing noted. Chest rises and falls symmetric respiration. GASTROINTESTINAL: Abdomen soft. He does have a little periumbilical tenderness with bowel sounds in all 4 quadrants. NEUROLOGIC: He is alert and oriented x3. SKIN: Warm and dry. LABS: WBC is 5.9 with hemoglobin 14.3, hematocrit 40.9 and platelets 225,000. Sodium 140, potassium 4.2, BUN 10, creatinine 1.1 with a glucose of 102. Stool for occult blood was positive. ASSESSMENT AND PLAN: 1. Gastrointestinal bleed. We will place him on clear liquids at present. Dr. Escobedo was spoken to by the emergency room. He will follow with the patient. Hemoglobin and hematocrit q.4 hours. Repeat a CBC in the morning. He has been typed and screened. 2. Hypertension. Will continue his home medications. 3. Diabetes mellitus. Will hold his metformin, give pattern blood glucose with sliding scale insulin. 4. Hyperlipidemia aware. 5. Reported congestive heart failure with a preserved ejection fraction. 6. Renal disease with a history of left kidney failure. 7. The patient will be admitted to the hospital. We will place him on telemetry. We will check hemoglobin and hematocrit q.4 hours. Plan was discussed with Dr. Dash. Further treatments pending hospital course. Dictated by JAZZMINE Heaton for Patricia Dash MD cc: JAZZMINE Heaton MD
[2019-03-04 23:19] LABS: HEMATOCRIT 40.2 % (42.0-52.0); HEMOGLOBIN 13.8 g/dL (14.0-18.0)
[2019-03-05 03:45] LABS: HEMATOCRIT 39.4 % (42.0-52.0); HEMOGLOBIN 13.7 g/dL (14.0-18.0)
[2019-03-05 06:56] LABS: BASO# 0.02 X1000 (0.0-0.2); BASO% 0.5 % (0.0-0.8); EOS# 0.21 X1000 (0.0-0.7); EOS% 5.5 % (0.0-10.0); HEMOGLOBIN 13.8 g/dL (14.0-18.0); LYMPH# 1.37 X1000 (1.2-3.4); LYMPH% 35.8 % (20.5-51.1); MCH 29.9 PG (27-31); MCHC 34.5 g/dL (33-37); MCV 86.8 FL (81-99); MONO# 0.29 X1000 (0.11-0.59); MONO% 7.6 % (1.7-9.3); MPV 9.8 FL (7.4-10.4); NEUT# 1.94 X1000 (1.4-6.5); NEUT% 50.6 % (42.2-75.2); PLT 212 X1000 (130-400); RBC 4.61 XMIL (4.7-6.1); RDW 12.6 % (11.5-14.5); WBC 3.83 X1000 (4.8-10.8)
[2019-03-05] MEDS ORDERED: PROTONIX IV SCH (07:00)
[2019-03-05] MEDS ORDERED: SODIUM CHLORIDE 0.9% INJ ONE (07:10)
[2019-03-05 07:20] LABS: AGAP 11; BUN 10 mg/dL (8-22); CALCIUM 9.2 mg/dL (8.8-10.2); CHLORIDE 103 mmol/L (98-107); COSMO 277; CREATININE 1.1 mg/dL (0.7-1.2); ESTIMATED GFR > 60; GLUCOSE 140 mg/dL (70-104); POTASSIUM 4.1 mmol/L (3.5-5.1); SODIUM 138 mmol/L (136-145); TCO2 24 mmol/L (25-35)
[2019-03-05] MEDS: PRINIVIL PO SCH (08:07)
[2019-03-05] MEDS: HUMULIN R SUBQ SCH ×3 (12:17→23:49)
[2019-03-05] MEDS ORDERED: GOLYTELY PO ONE (14:00)
--- NOTE | 2019-03-05 14:58 | PROGRESS NOTE ---
DATE: 03/05/2019 SUBJECTIVE: The patient is resting comfortably in bed. As per the patient, he noticed bright red blood in the toilet on , and then on Wednesday, he had a bowel movement and he noticed also blood clots, so that is why this patient came to the hospital. Vital signs are stable, and also the hemoglobin and hematocrit are stable. I do not think he is actively bleeding, but Gastroenterology Department has been consulted. I will wait for recommendations. OBJECTIVE: Vital Signs: Temperature 98.3 degrees, pulse 72, respiratory rate 20, blood pressure 138/76, oxygen saturation 95% on room air. HEENT: Head normocephalic. No trauma. PERRLA. Neck: Supple. No JVD. No masses. Central trachea. Chest: Clear to auscultation. No wheezing. No rales. Abdomen: Soft, nontender, nondistended. No hepatosplenomegaly. Extremities: No edema, no clubbing, no cyanosis. Neurological: The patient is awake and alert. He is oriented x3. No focal deficits. LABORATORY DATA: WBC 3.8, hemoglobin 13.8, hematocrit 40, platelet count 212,000. Sodium 138, potassium 4.1, chloride 103, bicarbonate 24, BUN 10, creatinine 1.1, glucose 140, calcium 9.2. ASSESSMENT AND PLAN: 1. Gastrointestinal bleed. Continue with liquid diet. Gastroenterology Department has been consulted. We will wait for recommendations. Hemoglobin and hematocrit are stable. 2. Hypertension. Continue home medications. 3. Diabetes. I will ask for a hemoglobin A1c. Continue with sliding scale insulin and pattern of blood sugar. 4. Hyperlipidemia. Aware. 5. Reported probably some history of congestive heart failure with preserved ejection fraction. 6. Renal disease with a previous history of possible acute kidney injury. cc: Giorgio Hebert MD
--- NOTE | 2019-03-06 05:50 | GASTROENTEROLOGY CONSULTATION ---
DATE: 03/05/2019 REASON FOR CONSULTATION: Hematochezia. HISTORY OF PRESENT ILLNESS: Mr. Curt Kamara is a 33-year-old gentleman with a past medical history of hypertension, hyperlipidemia, noninsulin dependent diabetes, obesity, who presents with multiple episodes of bright red blood per rectum with clots that started yesterday, and the patient reports noting bright red blood with wiping since early February after starting metformin. He had an episode on , and then yesterday developed multiple stools with bright red blood and clots. He reports a mild periumbilical cramping. No fevers. Positive nausea without vomiting. No chest pain or shortness of breath. Denies any blood thinners and said he has no prior EGD or colonoscopy. No melena. No hematemesis. No constipation. He does have some mild diarrhea, and has lost about 13 pounds in the last month after starting metformin. REVIEW OF SYSTEMS: As per HPI, otherwise 12 point review is negative. PAST MEDICAL HISTORY: As per HPI. PAST SURGICAL HISTORY: No prior abdominal surgery. FAMILY HISTORY: No family history of GI malignancies or IBD. SOCIAL HISTORY: No smoking, alcohol or drug use. MEDICATIONS: Metformin and lisinopril. ALLERGIES: To steroids and latex. PHYSICAL EXAMINATION: Vital Signs: Temperature is 97.3 degrees, heart rate 68, respiratory rate 20, blood pressure 141/85, O2 saturation is 100% on room air. General: The patient is awake, alert, oriented, in no acute distress. HEENT: Sclerae are anicteric. Moist mucous membranes. Extraocular muscles intact. Neck: Supple. No JVD or lymphadenopathy. Cardiac: Regular rate and rhythm. No murmurs, rubs or gallops. Lungs: Clear to auscultation bilaterally. No wheezing. Abdomen: Soft, nontender, nondistended. Normoactive bowel sounds. No rebound or guarding. Extremities: No clubbing, cyanosis or edema. Neurologic: Nonfocal. LABORATORY DATA: White count is 3.8, hemoglobin is 13.9, which is unchanged from yesterday, platelets of 212,000. INR is normal. Sodium 138, potassium 2.1, chloride 103, bicarbonate 24, BUN of 10, creatinine of 1.1, glucose of 140. LFTs are within normal limits from yesterday. IMAGING: None. ASSESSMENT AND PLAN: Mr. Curt Kamara is a 37-year-old gentleman with a history of hypertension, hyperlipidemia, noninsulin dependent diabetes type 2, obesity, who presents with intermittent rectal bleeding that is bright red with occasional clots, likely from hemorrhoidal bleeding. There is possibility diverticulosis. His hemoglobin is within normal limits. This suggests very minimal bleeding and possibly very distal rectum, and platelets are within normal limits. He is currently on a clear liquid diet and we will plan on prepping him today for a diagnostic colonoscopy tomorrow. We will continue to trend his hemoglobin and hematocrit. We will follow with you. Please call with any questions or concerns. - Rectal bleeding - Hemorrhoids - NIDDM2 - Obesity - HTN - Nausea [facility] CENTERAnika
[2019-03-06 06:52] LABS: BASO# 0.03 X1000 (0.0-0.2); BASO% 0.7 % (0.0-0.8); EOS% 4.5 % (0.0-10.0); HEMATOCRIT 41.8 % (42.0-52.0); HEMOGLOBIN 14.4 g/dL (14.0-18.0); LYMPH# 1.62 X1000 (1.2-3.4); LYMPH% 36.7 % (20.5-51.1); MCH 30.1 PG (27-31); MCHC 34.4 g/dL (33-37); MCV 87.3 FL (81-99); MONO# 0.38 X1000 (0.11-0.59); MONO% 8.6 % (1.7-9.3); MPV 10.2 FL (7.4-10.4); NEUT# 2.18 X1000 (1.4-6.5); NEUT% 49.5 % (42.2-75.2); PLT 213 X1000 (130-400); RBC 4.79 XMIL (4.7-6.1); RDW 12.8 % (11.5-14.5); WBC 4.41 X1000 (4.8-10.8)
[2019-03-06 06:59] LABS: HEMOGLOBIN A1C 8.5 % (4.8-6.0)
[2019-03-06] MEDS: HUMULIN R SUBQ SCH (07:21)
[2019-03-06 07:24] LABS: AGAP 14; BUN 8 mg/dL (8-22); CALCIUM 9.5 mg/dL (8.8-10.2); CHLORIDE 103 mmol/L (98-107); COSMO 278; CREATININE 1.1 mg/dL (0.7-1.2); ESTIMATED GFR > 60; GLUCOSE 133 mg/dL (70-104); POTASSIUM 4.2 mmol/L (3.5-5.1); SODIUM 139 mmol/L (136-145); TCO2 22 mmol/L (25-35)
[2019-03-06 07:37] VITALS: BP 135/75
[2019-03-06] MEDS: PRINIVIL PO SCH (09:31)
[2019-03-06] MEDS ORDERED: FENTANYL ONE (09:47)
[2019-03-06] MEDS ORDERED: DIPRIVAN 1% ONE ×2 (09:47→10:31)
[2019-03-06] MEDS ORDERED: XYLOCAINE-MPF 2% ONE (09:47)
--- NOTE | 2019-03-06 10:45 | ENDOSCOPY OPERATIVE NOTE ---
[facility] ENDOSCOPY OPERATIVE NOTE , COLONOSCOPY PROCEDURE REPORT EXAM DATE: 03/06/2019 PATIENT NAME: Cutr Kamara MR #: [id number] BIRTHDATE: 1985 ENDOSCOPIST: Louis Aponte MD STATUS: inpatient CHICKEN HANDLER: Victor Hugo Ledbetter and Tahira Mcdonald INDICATIONS: The patient is a 33 yr old male here for a colonoscopy due to Hematochezia, DM, Obesity . PROCEDURE PERFORMED: Colonoscopy, diagnostic MEDICATIONS: Per Anesthesia PREP TYPE: GoLytely
[2019-03-06] MEDS ORDERED: PREPARATION H OINT PR SCH (21:00)
[2019-03-06] MEDS ORDERED: BENEFIBER PACKET PO SCH (21:00)
--- NOTE | 2019-03-07 08:02 | DISCHARGE SUMMARY ---
ADMISSION DATE: 03/04/2019 DISCHARGE DATE: 03/06/2019 DISCHARGE DIAGNOSES: 1. Lower gastrointestinal bleed, likely due to internal grade 2 hemorrhoids. 2. Hypertension. 3. Diabetes with a hemoglobin A1c of 8.5. 4. Hyperlipidemia. 5. Reported probably history of congestive heart failure with preserved ejection fraction. 6. Possible chronic kidney disease. HOSPITAL COURSE: A 33-year-old male with a past medical history of hypertension, diabetes, possible CHF, anxiety, depression, TIA, possible CKD, presented to the emergency department with a chief complaint of passing blood clots when he has had bowel movements. As per the patient, on , he was about to have a bowel movement and instead he had some blood coming out and as per the patient, a good amount of the toilet was full of blood, then on Wednesday, 2 days later, he had a bowel movement and also he noticed a lot of blood clots and this is why this patient came to the hospital. An endoscopic exam/colonoscopy was done and did not show any complications. There are small internal grade 2 hemorrhoids, but no evidence of angioectasia/AVM and there was no evidence of blood. They have recommended to start a high-fiber diet and also Benefiber 1 tablespoon twice a day, start Preparation H suppository twice a day for 2 weeks. The patient seems to be stable. Vital signs and laboratory are stable. He will be discharged home today and follow up as needed PHYSICAL EXAMINATION: Vital signs: Temperature 98.3 degrees, pulse 70, respiratory rate 18, blood pressure 135/75, oxygen saturation 98 on room air. HEENT: Head normocephalic, no trauma. PERRLA. Neck: Supple. No JVD. No masses. Central trachea. Chest: Clear to auscultation. No wheezing. No rales. Abdomen: Soft, nontender, nondistended. No hepatosplenomegaly. Extremities: No edema, no clubbing, no cyanosis. Neurological: The patient is alert and oriented x3. No focal deficit. LABORATORY DATA: WBC 4.4, hemoglobin 14.4, hematocrit 41.8, platelets 213,000. Sodium 139, potassium 4.2, chloride 103, bicarbonate 22, BUN 8, creatinine 1.1, glucose 133. Hemoglobin A1c 8.5, calcium 9.5. DISCHARGE MEDICATIONS: Benefiber packet 1 packet p.o. twice a day, lisinopril 10 mg p.o. daily, metformin 500 mg p.o. with breakfast, and Preparation H suppository twice a day for 2 weeks. cc: Giorgio Hebert MD
== END 2019-03-06 12:30 | disposition home or self-care (01) | DRG 394 ==
LOC: ED 14:19 → 4N 20:24 → SUATTDRO 20:24
PROVIDERS: ATTEND Internal Medicine